=== PATIENT | female | born 1935 | race Caucasian/White ===

== ENCOUNTER 2021-12-14 23:22 | Inpatient (IN) ==
[2021-12-15] MEDS: *HR* Enoxaparin 40 MG/0.4 ML SYRINGE SQ SCH (05:30)
[2021-12-15 07:49] LABS: Basophils % 0.3 %; Eosinophils # 0.4 K/mcL (0.0-0.6); Eosinophils % 3.7 %; Hematocrit 32.6 % (35.3-44.9); Hemoglobin 10.8 g/dL (11.5-15.4); Immature Granulocytes % 0.3 % (0-4); Lymphocytes # 2.6 K/mcL (0.6-4.6); Lymphocytes % 22.5 %; Mean Corpuscular HGB Conc 33.1 g/dL (31.6-35.5); Mean Corpuscular Hemoglobin 30.5 pg (28.0-33.3); Mean Corpuscular Volume 92.1 fL (83.0-100.0); Monocytes % 8.3 %; Neutrophils # 7.6 K/mcL (1.6-8.9); Platelet Count 289 K/mcL (140-400); Red Blood Count 3.54 M/mcL (3.82-4.97); Red Cell Distribution Width 14.5 % (11.5-14.5); Segmented Neutrophils % 64.9 %; White Blood Count 11.7 K/mcL (4.3-11.1)
[2021-12-15 08:34] LABS: BUN/Creatinine Ratio 21 (6-26); Blood Urea Nitrogen 15 mg/dL (8-23); Calcium 8.5 mg/dL (8.6-10.3); Carbon Dioxide 28 mEq/L (23-29); Chloride 102 mEq/L (98-107); Glucose 127 mg/dL (70-105); Osmolality,Calculated 286 (280-300); Potassium 3.5 mEq/L (3.5-5.1); Sodium 137 mEq/L (136-145); eGFR For African Americans > 60 (> 60); eGFR For Non-African Americans > 60 (> 60)
[2021-12-15] MEDS: lisinopriL 20 MG TABLET PO SCH (08:45)
[2021-12-15] MEDS: *HR* LORazepam 1 MG TABLET PO SCH (08:45)
[2021-12-15] MEDS: Primidone 50 MG TABLET PO SCH (08:45)
[2021-12-16] MEDS: *HR* Enoxaparin 40 MG/0.4 ML SYRINGE SQ SCH (04:30)
[2021-12-16] MEDS: lisinopriL 20 MG TABLET PO SCH (08:44)
[2021-12-16] MEDS: Primidone 50 MG TABLET PO SCH (08:45)
[2021-12-16] MEDS: *HR* LORazepam 1 MG TABLET PO SCH (08:45)
[2021-12-17] MEDS: *HR* Enoxaparin 40 MG/0.4 ML SYRINGE SQ SCH (05:54)
[2021-12-17] MEDS: lisinopriL 20 MG TABLET PO SCH (07:56)
[2021-12-17] MEDS: *HR* LORazepam 1 MG TABLET PO SCH (07:56)
[2021-12-17] MEDS: Primidone 50 MG TABLET PO SCH (07:56)
[2021-12-17] MEDS: Ibuprofen 400 MG TABLET PO PRN (10:52)
[2021-12-18] MEDS: *HR* Enoxaparin 40 MG/0.4 ML SYRINGE SQ SCH (05:31)
[2021-12-18] MEDS: Primidone 50 MG TABLET PO SCH (08:28)
[2021-12-18] MEDS: Ibuprofen 400 MG TABLET PO PRN (08:28)
[2021-12-18] MEDS: lisinopriL 20 MG TABLET PO SCH (08:29)
[2021-12-18] MEDS: *HR* LORazepam 1 MG TABLET PO SCH (08:29)
[2021-12-18 18:45] LABS: Adenovirus Not Detected (Not Detect); Bordetella Pertussis Not Detected (Not Detect); Chlamydophila pneumoniae Not Detected (Not Detect); Coronavirus 229E Not Detected (Not Detect); Coronavirus HKU1 Not Detected (Not Detect); Coronavirus NL63 Not Detected (Not Detect); Coronavirus OC43 Not Detected (Not Detect); Human Metapneumovirus Not Detected (Not Detect); Human Rhinovirus/Enterovirus Not Detected (Not Detect); Influenza A Subtype 2009 H1 Not Detected (Not Detect); Influenza B Not Detected (Not Detect); Mycoplasma pneumoniae Not Detected (Not Detect); Parainfluenza Virus 1 Not Detected (Not Detect); Parainfluenza Virus 2 Not Detected (Not Detect); Parainfluenza Virus 3 Not Detected (Not Detect); Parainfluenza Virus 4 Not Detected (Not Detect); Respiratory Syncytial Virus Not Detected (Not Detect); SARS-CoV-2 Not Detected (Not Detect)
[2021-12-19] MEDS: *HR* Enoxaparin 40 MG/0.4 ML SYRINGE SQ SCH (06:07)
[2021-12-19] MEDS: lisinopriL 20 MG TABLET PO SCH (09:00)
[2021-12-19] MEDS: Primidone 50 MG TABLET PO SCH (09:01)
[2021-12-19] MEDS: *HR* LORazepam 1 MG TABLET PO SCH (09:01)
[2021-12-20] MEDS: *HR* Enoxaparin 40 MG/0.4 ML SYRINGE SQ SCH (05:55)
[2021-12-20] MEDS ORDERED: E-Z-PAQUE (BARIUM SULF) SUSP 1 BOTTLE PO ONE (11:19)
[2021-12-20] MEDS ORDERED: E-Z-HD (BARIUM SULF) SUSPENSION PO ONE (11:19)
[2021-12-20] MEDS: lisinopriL 20 MG TABLET PO SCH (11:51)
[2021-12-20] MEDS: Primidone 50 MG TABLET PO SCH (11:51)
[2021-12-20] MEDS: *HR* LORazepam 1 MG TABLET PO SCH (11:51)
[2021-12-21] MEDS: *HR* Enoxaparin 40 MG/0.4 ML SYRINGE SQ SCH (05:30)
[2021-12-21 05:38] LABS: Basophils % 0.2 %; Eosinophils # 0.2 K/mcL (0.0-0.6); Eosinophils % 1.9 %; Immature Granulocytes % 0.4 % (0-4); Lymphocytes # 2.3 K/mcL (0.6-4.6); Lymphocytes % 18.6 %; Mean Corpuscular HGB Conc 32.3 g/dL (31.6-35.5); Mean Corpuscular Hemoglobin 30.2 pg (28.0-33.3); Mean Corpuscular Volume 93.7 fL (83.0-100.0); Mean Platelet Volume 9.6 fL (9.4-12.4); Monocytes # 1.3 K/mcL (0.0-1.3); Monocytes % 10.3 %; Neutrophils # 8.4 K/mcL (1.6-8.9); Platelet Count 344 K/mcL (140-400); Red Blood Count 3.31 M/mcL (3.82-4.97); Red Cell Distribution Width 14.7 % (11.5-14.5); Segmented Neutrophils % 68.6 %; White Blood Count 12.3 K/mcL (4.3-11.1)
[2021-12-21 05:54] LABS: Albumin 3.1 g/dL (3.5-5.7); Albumin/Globulin Ratio 1.2 (1.1-2.2); Bilirubin,Total 0.5 mg/dL (0.3-1.0); Calcium 8.3 mg/dL (8.6-10.3); Globulin 2.6 g/dL (2.4-3.5); Magnesium 1.8 mg/dL (1.6-2.6); Potassium 3.9 mEq/L (3.5-5.1); Total Protein 5.7 g/dL (6.4-8.9)
[2021-12-21] MEDS: Primidone 50 MG TABLET PO SCH (08:29)
[2021-12-21] MEDS: *HR* LORazepam 1 MG TABLET PO SCH (08:29)
[2021-12-21] MEDS: lisinopriL 20 MG TABLET PO SCH (08:29)
[2021-12-21] MEDS: 0.9 % Sodium Chloride 1,000 ML IVC SCH (12:24)
[2021-12-22] MEDS: 0.9 % Sodium Chloride 1,000 ML IVC SCH ×4 (02:49→23:55)
[2021-12-22] MEDS: *HR* Enoxaparin 40 MG/0.4 ML SYRINGE SQ SCH (05:52)
[2021-12-22 07:33] LABS: Hematocrit 40.6 % (35.3-44.9); Hemoglobin 13.9 g/dL (11.5-15.4); Mean Corpuscular HGB Conc 34.2 g/dL (31.6-35.5); Mean Corpuscular Hemoglobin 32.1 pg (28.0-33.3); Mean Corpuscular Volume 93.8 fL (83.0-100.0); Mean Platelet Volume 9.1 fL (9.4-12.4); Platelet Count 246 K/mcL (140-400); Red Blood Count 4.33 M/mcL (3.82-4.97); Red Cell Distribution Width 14.9 % (11.5-14.5); White Blood Count 6.5 K/mcL (4.3-11.1)
[2021-12-22 07:38] LABS: Albumin 2.9 g/dL (3.5-5.7); Albumin/Globulin Ratio 1.2 (1.1-2.2); Bilirubin,Total 0.5 mg/dL (0.3-1.0); Calcium 7.9 mg/dL (8.6-10.3); Globulin 2.4 g/dL (2.4-3.5); Magnesium 1.6 mg/dL (1.6-2.6); Potassium 3.6 mEq/L (3.5-5.1); Total Protein 5.3 g/dL (6.4-8.9)
[2021-12-22] MEDS: *HR* LORazepam 1 MG TABLET PO SCH (08:46)
[2021-12-22] MEDS: Primidone 50 MG TABLET PO SCH (08:47)
[2021-12-22 14:21] LABS: Bilirubin,Urine Negative (Negative); Blood,Urine Trace-intact (Negative); Clarity,Urine Clear (Clear); Color,Urine Yellow (Yellow); Glucose,Urine (UA) Normal (Normal); Ketones,Urine Negative (Negative); Leukocyte Esterase,Urine Small (Negative); Nitrite,Urine Negative (Negative); PH,Urine 5.5 pH Units (5.0-8.0); Protein,Urine Negative (Neg-Trace); Urobilinogen,Urine Normal (Normal)
[2021-12-22 14:23] LABS: Bacteria,Urine Few per hpf (None-Few); RBC,Urine 0-3 per hpf (0-3); Squamous Epithelial Cell,Urine Few per hpf (None-Few); WBC,Urine 0-3 per hpf (0-3)
[2021-12-22] MEDS: cephALEXin 500 MG CAPSULE PO SCH (21:38)
[2021-12-23] MEDS ORDERED: *HR* HYDROcodone/Acet 5/325 mg TABLET PO ONE (00:36)
[2021-12-23] MEDS: 0.9 % Sodium Chloride 1,000 ML IVC SCH ×2 (01:35→08:59)
[2021-12-23] MEDS ORDERED: *HR* Enoxaparin 30 MG/0.3 ML SYRINGE SQ SCH (06:00)
[2021-12-23 07:04] VITALS: PULSE 77
[2021-12-23 07:40] LABS: Hematocrit 27.4 % (35.3-44.9); Mean Corpuscular HGB Conc 32.8 g/dL (31.6-35.5); Mean Corpuscular Hemoglobin 30.5 pg (28.0-33.3); Mean Corpuscular Volume 92.9 fL (83.0-100.0); Mean Platelet Volume 10.2 fL (9.4-12.4); Platelet Count 321 K/mcL (140-400); Red Blood Count 2.95 M/mcL (3.82-4.97); Red Cell Distribution Width 14.7 % (11.5-14.5); White Blood Count 12.1 K/mcL (4.3-11.1)
[2021-12-23 07:53] LABS: Calcium 7.5 mg/dL (8.6-10.3); Magnesium 1.5 mg/dL (1.6-2.6); Potassium 3.9 mEq/L (3.5-5.1)
[2021-12-23] MEDS: Primidone 50 MG TABLET PO SCH (08:54)
[2021-12-23] MEDS: *HR* LORazepam 1 MG TABLET PO SCH (08:55)
[2021-12-23] MEDS: cephALEXin 500 MG CAPSULE PO SCH (08:55)
[2021-12-23] MEDS ORDERED: lisinopriL 20 MG TABLET PO SCH (09:00)
[2021-12-23 10:02] VITALS: O2SAT 94
[2021-12-23] MEDS ORDERED: *HR* HYDROcodone/Acet 5/325 mg TABLET PO PRN (10:05)
[2021-12-23 16:47] VITALS: BP 156/77; RESP 16; TEMP 97.6
== END 2021-12-23 17:00 | disposition short-term general hospital (02) ==
LOC: INPGRE → OBSVTOIN 23:40
PROVIDERS: ADMIT Family Medicine; ATTEND Family Medicine